=== PATIENT | female | born 1955 | race Caucasian/White ===

== ENCOUNTER 2019-05-26 19:24 | Emergency (ER) | payer BC, OTHER ==
[2019-05-27 01:15] VITALS: BP 169/78; PULSE 93
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
== END 2019-05-26 21:17 | disposition home or self-care (01) ==
LOC: LB.ED 19:24
DX: S80.212A Abrasion, left knee, initial encounter (principal); R91.1 Solitary pulmonary nodule; V49.59XA Passenger injured in collision with other motor vehicles in traffic accident, initial encounter
CPT/HCPCS: 36415; 71250; 74176; 80048; 81001; 85025; 99284-25

== ENCOUNTER 2019-12-26 08:26 | Day surgery (SDC) | payer BC ==
[~2019-12-26 08:26] MED LIST: Metoclopramide 10 MG/2 ML SDV IV PRN
[2019-12-26] MEDS: Sodium Chloride 0.9% 1,000 ML IV SCH (08:51)
[2019-12-26] MEDS ORDERED: Propofol 1,000 MG/100 ML SDV ONE (10:05)
[2019-12-26 10:25] VITALS: BP 131/86
[2019-12-26 12:47] VITALS: PULSE 74
--- NOTE | 2019-12-26 15:08 | OR ---
DATE OF OPERATION: 12/26/2019 SURGEON: Pete Bautista MD PREOPERATIVE DIAGNOSIS: Surveillance colonoscopy. POSTOPERATIVE DIAGNOSIS: Surveillance colonoscopy. PROCEDURE: Colonoscopy. ANESTHESIA: MAC. ESTIMATED BLOOD LOSS: None. COMPLICATIONS: None. INDICATION FOR THE PROCEDURE: The patient is a 64-year-old female who last had a colonoscopy approximately 8-9 years ago. Apparently had a polyp present, which was removed. She also has a history of diverticulitis in the past. Most recently, approximately 8 weeks ago. She is here today for a surveillance colonoscopy. DESCRIPTION OF PROCEDURE: Informed consent was obtained from the patient. The patient was taken to the operating room and placed on table in left lateral decubitus position. Monitored anesthesia care was administered. Colonoscope then advanced through the anus directed toward the cecum. Cecum was reached and identified by appendiceal orifice and ileocecal valve. Colonoscope then slowly withdrawn. No polyps, no masses. No areas of ischemia or inflammation identified. She did have a few small diverticula in the sigmoid colon, otherwise unremarkable. Rectum was also unremarkable. Colonoscope then withdrawn. FINDINGS: A few small sigmoid diverticula. RECOMMENDATIONS: We would recommend repeat screening colonoscopy in 10 years. CARRIE/MESSI /[id number]
== END 2019-12-26 11:18 | disposition home or self-care (01) ==
LOC: LB.SDS 08:26
PROVIDERS: ATTEND Surgery
DX: Z12.11 Encounter for screening for malignant neoplasm of colon (principal); K57.30 Diverticulosis of large intestine without perforation or abscess without bleeding; Z86.010 Personal history of colon polyps
CPT/HCPCS: G0121; J2704; J7030